=== PATIENT | female | born 1950 | race Caucasian/White ===

== ENCOUNTER 2017-10-20 16:09 | Emergency (ER) | payer OTHER ==
[~2017-10-20] VITALS: Ht 162.6 cm; Wt 63.5 kg
[~2017-10-20 16:09] MED LIST: BUS10T; ENAL2.5T47; METF500T; OLAN20TA13; TRAZ100T2
[2017-10-20 16:22] VITALS: BP 142/78
== END 2017-10-20 18:05 | disposition home or self-care (01) ==
LOC: EDBD 16:09 → ER 16:09
DX: S09.8XXA Other specified injuries of head, initial encounter (principal); E11.9 Type 2 diabetes mellitus without complications; I10 Essential (primary) hypertension; F17.210 Nicotine dependence, cigarettes, uncomplicated; M54.2 Cervicalgia; W01.0XXA Fall on same level from slipping, tripping and stumbling without subsequent striking against object, initial encounter; Y93.89 Activity, other specified; Y92.89 Other specified places as the place of occurrence of the external cause; Y99.8 Other external cause status
CPT/HCPCS: 70450; 72125

== ENCOUNTER 2020-09-25 11:33 | Inpatient (IN) | payer OTHER ==
[~2020-09-25] VITALS: Ht 167.6 cm; Wt 59.5 kg
[~2020-09-25 11:33] MED LIST changes: +OLAN20TA; -OLAN20TA13; -TRAZ100T2; +TRAZ100T3
[2020-09-25] MEDS ORDERED: SODIUM CHLORIDE 0.9% 1,000 ML IV ONE (11:45)
[2020-09-25 12:22] LABS: Basophils # (auto) 0.1 10 ^3/uL (0-0.2); Eosinophils # (auto) 0.1 10 ^3/uL (0-0.8); Eosinophils % (auto) 0.6 % (0.0-7.0); Hemoglobin 13.4 g/dL (12.2-16.2); Lymphocytes # (auto) 3.5 10 ^3/uL (0.4-5.4); Monocytes # (auto) 0.8 10 ^3/uL (0-1.3); Nucleated Red Blood Cells % 0.1 %
[2020-09-25 12:24] LABS: Basophils % (auto) 0.7 % (0.0-2.0); Hematocrit 40.1 % (36.0-46.0); Lymphocytes % (auto) 24.7 % (10.0-50.0); Mean Corpuscular Hemoglobin 26.8 pg (28.0-32.0); Mean Corpuscular Hgb Conc. 33.4 g/dL (32.0-36.0); Mean Corpuscular Volume 80.5 fL (80.0-100.0); Monocytes % (auto) 5.6 % (0.0-12.0); Neutrophils # (auto) 9.8 10 ^3/uL (1.6-8.6); Neutrophils % (auto) 68.4 % (37.0-80.0); Platelet Count (auto) 452 10^3/uL (140-450); Red Blood Cells 4.98 10^6/uL (4.0-5.20); Red Cell Distribution Width 15.6 % (11.8-14.3); White Blood Cell 14.3 10^3/uL (4.4-10.8)
[2020-09-25 12:46] LABS: Alanine Aminotransferase 22 U/L (13-56); Anion Gap 14 (5-15); Aspartate Aminotransferase 24 U/L (15-37); Blood Urea Nitrogen 5 mg/dL (7-18); Carbon Dioxide 19 mmol/L (21-32); Chloride 100 mmol/L (98-107); GFR African American 70 mL/min; GFR Non-African American 58 mL/min; Glucose 144 mg/dL (74-106); Potassium 3.3 mmol/L (3.5-5.1); Sodium 133 mmol/L (136-145)
[2020-09-25 12:52] LABS: Alkaline Phosphatase 129 U/L (45-117); Bilirubin, Total 0.5 mg/dL (0.2-1.0); Total Protein 8.7 g/dL (6.4-8.2)
[2020-09-25] MEDS ORDERED: AZITHROMYCIN 500MG/ 250ML 250 ML IV ONE (13:00)
[2020-09-25] MEDS ORDERED: cefTRIAXone 1GM/50ML D5W 50 ML IV ONE (13:00)
[2020-09-25 15:01] LABS: Urine Bacteria NONE SEEN /hpf (None Seen); Urine Blood Negative /uL (Negative); Urine Specific Gravity 1.009 (1.001-1.035); Urine WBC 5 /hpf (0 - 5)
[2020-09-25] MEDS ORDERED: ONDANSETRON HCL 4 MG/2 ML VIAL IV PRN (15:45)
[2020-09-25] MEDS ORDERED: VANCOMYCIN PER PHARMACY 0 MG IV SCH (15:45)
[2020-09-25] MEDS ORDERED: NITROGLYCERIN 0.4 MG SL TAB SL PRN (15:45)
[2020-09-25] MEDS ORDERED: LORazepam 0.5 MG TAB PO PRN (15:45)
[2020-09-25] MEDS ORDERED: LABETALOL HCL 5 MG/ML 4ML SYRINGE IV PRN (15:45)
[2020-09-25] MEDS ORDERED: MORPHINE SULF INJ 2 MG/ML SYRINGE 1ML IV PRN ×2 (15:45)
[2020-09-25] MEDS ORDERED: DEXTROSE (50%) 50ML SYRG IV PRN (15:45)
[2020-09-25] MEDS ORDERED: VANCOMYCIN 1GM/250ML 250 ML IV ONE (16:15)
[2020-09-25] MEDS: POTASSIUM CHL 20MEQ/100ML 100 ML IV SCH ×2 (17:25→17:45)
[2020-09-25] MEDS: ACCU-CHEK COMFORT CURVE STRIP VI SCH ×2 (17:26→20:00)
[2020-09-25] MEDS: SODIUM CHLORIDE 0.9% 1,000 ML IV SCH (17:26)
[2020-09-25] MEDS ORDERED: PIPERACILLIN-TAZOB 3.375GM 100 ML IV SCH (18:00)
[2020-09-25] MEDS: ALBUTEROL SULF 2.5 MG/0.5ML(0.5%) NEB SOLN NEB PRN (18:19)
[2020-09-25] MEDS: BUDESONIDE (INHALATION) 0.5 MG/2 ML NEB NEB SCH (18:20)
[2020-09-25] MEDS: InsuLIN REG 1unit/0.01ml Soln (100units/ml) SC SCH ×2 (18:45→22:27)
[2020-09-25 19:07] VITALS: BP 131/54
[2020-09-25 20:00] VITALS: BP 125/71
[2020-09-25] MEDS: OLANZapine 5 MG TAB PO SCH (22:00)
[2020-09-25] MEDS ORDERED: VANCOMYCIN 1GM/250ML 250 ML IV SCH (22:00)
[2020-09-25] MEDS: busPIRone HCL 10 MG TAB PO SCH (22:08)
[2020-09-25] MEDS: traZODone HCL 50 MG TAB PO SCH (22:08)
[2020-09-25] MEDS: levETIRAcetam 500 MG TAB PO SCH (22:09)
[2020-09-26] MEDS ORDERED: POTASSIUM CHL 20MEQ/100ML 100 ML IV SCH (00:15)
[2020-09-26] MEDS: ACCU-CHEK COMFORT CURVE STRIP VI SCH ×5 (00:27→18:00)
[2020-09-26] MEDS: InsuLIN REG 1unit/0.01ml Soln (100units/ml) SC SCH ×5 (00:32→18:01)
[2020-09-26] MEDS: SODIUM CHLORIDE 0.9% 1,000 ML IV SCH ×2 (01:45→12:27)
[2020-09-26] MEDS ORDERED: INFLUENZA QUAD 2020-2021 0.5 ML SYRG IM ONE (01:45)
[2020-09-26] MEDS: PIPERACILLIN-TAZOB 3.375GM 100 ML IV SCH ×4 (04:48→23:00)
[2020-09-26 05:12] VITALS: BP 108/57
[2020-09-26] MEDS: ALBUTEROL SULF 2.5 MG/0.5ML(0.5%) NEB SOLN NEB PRN (06:35)
[2020-09-26] MEDS: BUDESONIDE (INHALATION) 0.5 MG/2 ML NEB NEB SCH ×2 (06:35→22:11)
[2020-09-26 06:50] LABS: Basophils # (auto) 0.1 10 ^3/uL (0-0.2); Eosinophils # (auto) 0.3 10 ^3/uL (0-0.8); Eosinophils % (auto) 2.8 % (0.0-7.0); Neutrophils # (auto) 5.2 10 ^3/uL (1.6-8.6); Nucleated Red Blood Cells % 0.1 %
[2020-09-26 06:53] LABS: Basophils % (auto) 1.2 % (0.0-2.0); Hematocrit 32.4 % (36.0-46.0); Hemoglobin 10.7 g/dL (12.2-16.2); Lymphocytes # (auto) 3.6 10 ^3/uL (0.4-5.4); Mean Corpuscular Hemoglobin 26.5 pg (28.0-32.0); Mean Corpuscular Hgb Conc. 33.2 g/dL (32.0-36.0); Mean Corpuscular Volume 79.8 fL (80.0-100.0); Monocytes # (auto) 0.8 10 ^3/uL (0-1.3); Monocytes % (auto) 7.6 % (0.0-12.0); Neutrophils % (auto) 52.4 % (37.0-80.0); Platelet Count (auto) 327 10^3/uL (140-450); Red Blood Cells 4.06 10^6/uL (4.0-5.20); Red Cell Distribution Width 15.8 % (11.8-14.3)
[2020-09-26 07:06] LABS: Calcium 8.4 mg/dL (8.5-10.1); Magnesium 2.2 mg/dL (1.6-2.6)
[2020-09-26 07:08] LABS: INR 1.02 (0.9-1.15)
[2020-09-26 07:20] LABS: BUN/Creatinine Ratio 5.1; Bilirubin, Total 0.4 mg/dL (0.2-1.0); CRP High Sensitivity 1.9 mg/dL (< 0.3); Total Protein 6.8 g/dL (6.4-8.2)
[2020-09-26 08:55] VITALS: BP 139/71
[2020-09-26] MEDS: ENOXAPARIN SOD 40 MG/0.4 ML SYRINGE SC SCH (09:11)
[2020-09-26] MEDS: levETIRAcetam 500 MG TAB PO SCH ×2 (09:11→23:00)
[2020-09-26] MEDS: PANTOPRAZOLE 40 MG TAB PO SCH (09:12)
[2020-09-26] MEDS: busPIRone HCL 10 MG TAB PO SCH ×2 (09:14→23:00)
[2020-09-26 12:43] VITALS: BP 120/63
[2020-09-26] MEDS ORDERED: methylPREDNISolone SOD SUCC 40 MG/ML VL IV ONE (13:45)
[2020-09-26] MEDS ORDERED: IOHEXOL 350 MG/ML 100ML IJ ONE (15:18)
[2020-09-26 16:37] VITALS: BP 156/77
[2020-09-26] MEDS: methylPREDNISolone SOD SUCC 40 MG/ML VL IV SCH (18:00)
[2020-09-26 22:00] VITALS: BP 148/68
[2020-09-26] MEDS ORDERED: ATORVASTATIN 20 MG TAB PO ONE (23:00)
[2020-09-26] MEDS: OLANZapine 5 MG TAB PO SCH (23:00)
[2020-09-26] MEDS: traZODone HCL 50 MG TAB PO SCH (23:00)
[2020-09-27] MEDS: methylPREDNISolone SOD SUCC 40 MG/ML VL IV SCH ×4 (00:44→18:14)
[2020-09-27] MEDS: ACCU-CHEK COMFORT CURVE STRIP VI SCH ×4 (00:44→18:14)
[2020-09-27] MEDS: PIPERACILLIN-TAZOB 3.375GM 100 ML IV SCH ×4 (04:41→21:17)
[2020-09-27 05:00] VITALS: BP 120/70
[2020-09-27] MEDS: InsuLIN REG 1unit/0.01ml Soln (100units/ml) SC SCH ×4 (06:02→18:15)
[2020-09-27] MEDS: ALBUTEROL SULF 2.5 MG/0.5ML(0.5%) NEB SOLN NEB PRN ×2 (06:37→19:19)
[2020-09-27] MEDS: BUDESONIDE (INHALATION) 0.5 MG/2 ML NEB NEB SCH ×2 (06:37→19:19)
[2020-09-27 09:00] VITALS: BP 123/60
[2020-09-27] MEDS: levETIRAcetam 500 MG TAB PO SCH ×2 (10:05→21:17)
[2020-09-27] MEDS: ASPirin-EC 81 mg tab PO SCH (10:05)
[2020-09-27] MEDS: busPIRone HCL 10 MG TAB PO SCH ×2 (10:05→21:17)
[2020-09-27] MEDS: PANTOPRAZOLE 40 MG TAB PO SCH (10:05)
[2020-09-27] MEDS: ENOXAPARIN SOD 40 MG/0.4 ML SYRINGE SC SCH (10:06)
[2020-09-27 13:00] VITALS: BP 121/74
[2020-09-27 13:20] LABS: Cholesterol 140 mg/dL (< 200); HDL Cholesterol 50 mg/dL (40-59); LDL Cholesterol 80 mg/dL (< 100); Triglycerides 64 mg/dL (< 150)
[2020-09-27 17:00] VITALS: BP 126/66
[2020-09-27] MEDS: ATORVASTATIN 20 MG TAB PO SCH (21:16)
[2020-09-27] MEDS: traZODone HCL 50 MG TAB PO SCH (21:17)
[2020-09-27] MEDS: OLANZapine 5 MG TAB PO SCH ×2 (21:17→21:50)
[2020-09-27] MEDS ORDERED: OLANZapine 5 MG TAB ONE ×2 (21:48→21:49)
[2020-09-27 22:00] VITALS: BP 134/84
[2020-09-27] MEDS ORDERED: ATORVASTATIN 20 MG TAB PO SCH (22:00)
[2020-09-28] MEDS: InsuLIN REG 1unit/0.01ml Soln (100units/ml) SC SCH ×5 (00:22→23:09)
[2020-09-28] MEDS: ACCU-CHEK COMFORT CURVE STRIP VI SCH ×5 (00:26→23:09)
[2020-09-28] MEDS: methylPREDNISolone SOD SUCC 40 MG/ML VL IV SCH ×2 (00:26→05:30)
[2020-09-28] MEDS: PIPERACILLIN-TAZOB 3.375GM 100 ML IV SCH ×4 (04:17→21:21)
[2020-09-28 05:00] VITALS: BP 143/65
[2020-09-28 09:07] VITALS: BP 136/69
[2020-09-28] MEDS: ALBUTEROL SULF 2.5 MG/0.5ML(0.5%) NEB SOLN NEB PRN ×2 (09:19→19:14)
[2020-09-28] MEDS: BUDESONIDE (INHALATION) 0.5 MG/2 ML NEB NEB SCH ×2 (09:19→19:15)
[2020-09-28 09:44] LABS: Folate (Folic Acid) 6.84 ng/mL (5.38-24)
[2020-09-28] MEDS: levETIRAcetam 500 MG TAB PO SCH ×2 (10:00→21:23)
[2020-09-28] MEDS: busPIRone HCL 10 MG TAB PO SCH ×2 (10:00→21:21)
[2020-09-28] MEDS: PANTOPRAZOLE 40 MG TAB PO SCH (10:00)
[2020-09-28] MEDS: ASPirin-EC 81 mg tab PO SCH (10:00)
[2020-09-28] MEDS: ENOXAPARIN SOD 40 MG/0.4 ML SYRINGE SC SCH (10:01)
[2020-09-28] MEDS ORDERED: predniSONE 20 MG TAB PO ONE (10:30)
[2020-09-28 13:06] VITALS: BP 156/69
[2020-09-28 16:50] VITALS: BP 141/86
[2020-09-28 20:55] VITALS: BP 141/86
[2020-09-28] MEDS: traZODone HCL 50 MG TAB PO SCH (21:23)
[2020-09-28] MEDS: OLANZapine 5 MG TAB PO SCH (21:24)
[2020-09-28] MEDS: ATORVASTATIN 20 MG TAB PO SCH (21:24)
[2020-09-28 22:00] VITALS: BP 136/60
[2020-09-29] MEDS: PIPERACILLIN-TAZOB 3.375GM 100 ML IV SCH ×4 (04:36→20:49)
[2020-09-29 05:00] VITALS: BP 160/79
[2020-09-29] MEDS: ACCU-CHEK COMFORT CURVE STRIP VI SCH ×4 (05:25→23:47)
[2020-09-29] MEDS: InsuLIN REG 1unit/0.01ml Soln (100units/ml) SC SCH ×4 (05:25→23:46)
[2020-09-29 05:34] LABS: Basophils # (auto) 0 10 ^3/uL (0-0.2); Basophils % (auto) 0.2 % (0.0-2.0); Eosinophils # (auto) 0 10 ^3/uL (0-0.8); Eosinophils % (auto) 0.2 % (0.0-7.0); Hematocrit 33.4 % (36.0-46.0); Lymphocytes # (auto) 4.8 10 ^3/uL (0.4-5.4); Lymphocytes % (auto) 28.8 % (10.0-50.0); Mean Corpuscular Hemoglobin 26.2 pg (28.0-32.0); Mean Corpuscular Hgb Conc. 32.8 g/dL (32.0-36.0); Mean Corpuscular Volume 79.8 fL (80.0-100.0); Monocytes # (auto) 1.4 10 ^3/uL (0-1.3); Monocytes % (auto) 8.5 % (0.0-12.0); Neutrophils # (auto) 10.3 10 ^3/uL (1.6-8.6); Neutrophils % (auto) 62.3 % (37.0-80.0); Platelet Count (auto) 335 10^3/uL (140-450); Red Blood Cells 4.19 10^6/uL (4.0-5.20); Red Cell Distribution Width 15.6 % (11.8-14.3); White Blood Cell 16.5 10^3/uL (4.4-10.8)
[2020-09-29 05:50] LABS: BUN/Creatinine Ratio 7.6; Potassium 3.2 mmol/L (3.5-5.1)
[2020-09-29] MEDS: BUDESONIDE (INHALATION) 0.5 MG/2 ML NEB NEB SCH ×2 (07:29→19:25)
[2020-09-29] MEDS: ALBUTEROL SULF 2.5 MG/0.5ML(0.5%) NEB SOLN NEB PRN ×2 (07:29→19:25)
[2020-09-29 08:00] VITALS: BP 123/63
[2020-09-29] MEDS: ENOXAPARIN SOD 40 MG/0.4 ML SYRINGE SC SCH (09:31)
[2020-09-29] MEDS: levETIRAcetam 500 MG TAB PO SCH ×2 (09:32→21:01)
[2020-09-29] MEDS: busPIRone HCL 10 MG TAB PO SCH ×2 (09:32→21:00)
[2020-09-29] MEDS: predniSONE 20 MG TAB PO SCH (09:32)
[2020-09-29] MEDS: ASPirin-EC 81 mg tab PO SCH (09:32)
[2020-09-29] MEDS: PANTOPRAZOLE 40 MG TAB PO SCH (09:32)
[2020-09-29 12:00] VITALS: BP 136/66
[2020-09-29 16:00] VITALS: BP 154/79
[2020-09-29] MEDS: OLANZapine 5 MG TAB PO SCH (21:01)
[2020-09-29] MEDS: ATORVASTATIN 20 MG TAB PO SCH (21:01)
[2020-09-29] MEDS: traZODone HCL 50 MG TAB PO SCH (21:01)
[2020-09-29 22:00] VITALS: BP 145/77
[2020-09-29] MEDS ORDERED: ATORVASTATIN 20 MG TAB PO ONE (22:30)
[2020-09-30] MEDS: PIPERACILLIN-TAZOB 3.375GM 100 ML IV SCH ×4 (04:00→22:38)
[2020-09-30 05:00] VITALS: BP 157/75
[2020-09-30] MEDS: InsuLIN REG 1unit/0.01ml Soln (100units/ml) SC SCH ×4 (06:00→23:39)
[2020-09-30 06:02] LABS: Eosinophils # (auto) 0.1 10 ^3/uL (0-0.8); Nucleated Red Blood Cells % 0.1 %; Red Cell Distribution Width 15.6 % (11.8-14.3)
[2020-09-30 06:05] LABS: Basophils # (auto) 0 10 ^3/uL (0-0.2); Basophils % (auto) 0.3 % (0.0-2.0); Eosinophils % (auto) 0.6 % (0.0-7.0); Hematocrit 33.9 % (36.0-46.0); Hemoglobin 11.2 g/dL (12.2-16.2); Lymphocytes # (auto) 4.8 10 ^3/uL (0.4-5.4); Lymphocytes % (auto) 36.9 % (10.0-50.0); Mean Corpuscular Hemoglobin 26.2 pg (28.0-32.0); Mean Corpuscular Hgb Conc. 33.1 g/dL (32.0-36.0); Mean Corpuscular Volume 79.3 fL (80.0-100.0); Neutrophils % (auto) 54.2 % (37.0-80.0); Platelet Count (auto) 324 10^3/uL (140-450); Red Blood Cells 4.27 10^6/uL (4.0-5.20); White Blood Cell 12.9 10^3/uL (4.4-10.8)
[2020-09-30] MEDS: ACCU-CHEK COMFORT CURVE STRIP VI SCH ×4 (06:11→23:36)
[2020-09-30 06:21] LABS: Calcium 8.9 mg/dL (8.5-10.1); Potassium 3.1 mmol/L (3.5-5.1)
[2020-09-30 06:25] LABS: BUN/Creatinine Ratio 12.2
[2020-09-30 09:00] VITALS: BP 144/69
[2020-09-30] MEDS ORDERED: REGADENOSON 0.4 MG/5 ML SYRG IV ONE (09:15)
[2020-09-30] MEDS: predniSONE 20 MG TAB PO SCH (09:31)
[2020-09-30] MEDS: busPIRone HCL 10 MG TAB PO SCH ×2 (09:32→22:28)
[2020-09-30] MEDS: PANTOPRAZOLE 40 MG TAB PO SCH (09:32)
[2020-09-30] MEDS: levETIRAcetam 500 MG TAB PO SCH ×2 (09:32→22:28)
[2020-09-30] MEDS: ENOXAPARIN SOD 40 MG/0.4 ML SYRINGE SC SCH (09:32)
[2020-09-30] MEDS: ASPirin-EC 81 mg tab PO SCH (09:33)
[2020-09-30 13:00] VITALS: BP 130/66
[2020-09-30] MEDS: BUDESONIDE (INHALATION) 0.5 MG/2 ML NEB NEB SCH ×2 (13:30→19:07)
[2020-09-30] MEDS: ALBUTEROL SULF 2.5 MG/0.5ML(0.5%) NEB SOLN NEB PRN ×2 (13:31→19:07)
[2020-09-30 16:48] VITALS: BP 139/84
[2020-09-30] MEDS ORDERED: POTASSIUM CHL 20 Meq TABLET PO ONE (20:45)
[2020-09-30 22:00] VITALS: BP 145/82
[2020-09-30] MEDS ORDERED: ATORVASTATIN 20 MG TAB PO SCH (22:00)
[2020-09-30] MEDS: traZODone HCL 50 MG TAB PO SCH (22:27)
[2020-09-30] MEDS: OLANZapine 5 MG TAB PO SCH (22:30)
[2020-10-01] MEDS: PIPERACILLIN-TAZOB 3.375GM 100 ML IV SCH ×2 (03:36→09:31)
[2020-10-01 05:00] VITALS: BP 152/68
[2020-10-01] MEDS: BUDESONIDE (INHALATION) 0.5 MG/2 ML NEB NEB SCH (05:57)
[2020-10-01] MEDS: ALBUTEROL SULF 2.5 MG/0.5ML(0.5%) NEB SOLN NEB PRN (05:57)
[2020-10-01] MEDS: InsuLIN REG 1unit/0.01ml Soln (100units/ml) SC SCH ×2 (06:00→11:57)
[2020-10-01 06:07] LABS: Basophils # (auto) 0 10 ^3/uL (0-0.2); Basophils % (auto) 0.3 % (0.0-2.0); Eosinophils # (auto) 0.1 10 ^3/uL (0-0.8); Eosinophils % (auto) 0.9 % (0.0-7.0); Hemoglobin 11.5 g/dL (12.2-16.2); Lymphocytes # (auto) 5.4 10 ^3/uL (0.4-5.4); Monocytes # (auto) 1.2 10 ^3/uL (0-1.3); Nucleated Red Blood Cells % 0.1 %
[2020-10-01 06:09] LABS: Hematocrit 34.3 % (36.0-46.0); Lymphocytes % (auto) 34.3 % (10.0-50.0); Mean Corpuscular Hemoglobin 26.7 pg (28.0-32.0); Mean Corpuscular Hgb Conc. 33.6 g/dL (32.0-36.0); Mean Corpuscular Volume 79.5 fL (80.0-100.0); Monocytes % (auto) 7.8 % (0.0-12.0); Neutrophils % (auto) 56.7 % (37.0-80.0); Platelet Count (auto) 343 10^3/uL (140-450); Red Blood Cells 4.32 10^6/uL (4.0-5.20); Red Cell Distribution Width 15.7 % (11.8-14.3); White Blood Cell 15.9 10^3/uL (4.4-10.8)
[2020-10-01] MEDS: ACCU-CHEK COMFORT CURVE STRIP VI SCH ×2 (06:22→11:45)
[2020-10-01 06:23] LABS: BUN/Creatinine Ratio 9.2; Calcium 9.1 mg/dL (8.5-10.1); Potassium 3.6 mmol/L (3.5-5.1)
[2020-10-01 09:00] VITALS: BP 151/73
[2020-10-01] MEDS: ENOXAPARIN SOD 40 MG/0.4 ML SYRINGE SC SCH (09:31)
[2020-10-01] MEDS: levETIRAcetam 500 MG TAB PO SCH (09:32)
[2020-10-01] MEDS: predniSONE 20 MG TAB PO SCH (09:32)
[2020-10-01] MEDS: busPIRone HCL 10 MG TAB PO SCH (09:32)
[2020-10-01] MEDS: ASPirin-EC 81 mg tab PO SCH (09:32)
[2020-10-01] MEDS: PANTOPRAZOLE 40 MG TAB PO SCH (09:32)
[2020-10-01] MEDS ORDERED: KEP500T PO (11:08)
[2020-10-01] MEDS ORDERED: AMOX500T86 PO (11:09)
[2020-10-01] MEDS ORDERED: ATOR20TA50 PO (11:09)
[2020-10-01] MEDS ORDERED: ASPI-543 PO (11:09)
[2020-10-01 13:00] VITALS: BP 156/76
[2020-10-01 14:09] VITALS: BP 131/72
== END 2020-10-01 15:15 | disposition home health service (06) | DRG 871 ==
LOC: ER 11:33 → EDBD 11:33 → TELE 15:37 → TELE-WESTW 19:40 → TELE-EAST 19:55 → TELE-WESTW 09-26 04:32
PROVIDERS: ADMIT Family Medicine; ATTEND Internal Medicine Pulmonary Disease
DX: A41.9 Sepsis, unspecified organism (principal); J12.9 Viral pneumonia, unspecified; G93.41 Metabolic encephalopathy; J96.01 Acute respiratory failure with hypoxia; E87.1 Hypo-osmolality and hyponatremia; J44.1 Chronic obstructive pulmonary disease with (acute) exacerbation; J44.0 Chronic obstructive pulmonary disease with (acute) lower respiratory infection; Z20.822 Contact with and (suspected) exposure to COVID-19; E11.65 Type 2 diabetes mellitus with hyperglycemia; G40.909 Epilepsy, unspecified, not intractable, without status epilepticus; F31.9 Bipolar disorder, unspecified; K80.20 Calculus of gallbladder without cholecystitis without obstruction; I70.0 Atherosclerosis of aorta; D64.9 Anemia, unspecified; J84.10 Pulmonary fibrosis, unspecified; E87.6 Hypokalemia; E11.22 Type 2 diabetes mellitus with diabetic chronic kidney disease; N20.0 Calculus of kidney; F17.210 Nicotine dependence, cigarettes, uncomplicated; N18.31 Chronic kidney disease, stage 3a; I65.22 Occlusion and stenosis of left carotid artery; I25.9 Chronic ischemic heart disease, unspecified; I13.10 Hypertensive heart and chronic kidney disease without heart failure, with stage 1 through stage 4 chronic kidney disease, or unspecified chronic kidney disease; Z86.73 Personal history of transient ischemic attack (TIA), and cerebral infarction without residual deficits; Z79.82 Long term (current) use of aspirin; Z79.899 Other long term (current) drug therapy; Z81.8 Family history of other mental and behavioral disorders; Z82.49 Family history of ischemic heart disease and other diseases of the circulatory system; Z90.710 Acquired absence of both cervix and uterus
CPT/HCPCS: 36415; 71045; 71275; 74176; 78452; 80048; 80053; 80061; 81001; 82270; 82607; 82728; 82746; 82962; 83036; 83615; 83735; 83880; 84443; 84484; 85025; 85379; 85610; 86141; 87426; 93005; 93017; 93306; 93886; 94640; 95819; 96361; 96365; 96368; 96375; 99291; G0378; J0696; J1815; J2405; J2543; J3480; J3490